=== PATIENT | male | born 1980 | race Caucasian/White ===

== ENCOUNTER 2018-01-22 20:31 | Emergency (ER) | payer SELFPAY ==
[~2018-01-22] VITALS: Ht 185.4 cm; Wt 81.6 kg
[2018-01-22 20:48] VITALS: BP 118/73
--- NOTE | 2018-01-22 20:51 | NUR ---
PT TRIAGED AND SENT TO ER LOBBY. EDMD AWARE OF PT STATUS
--- NOTE | 2018-01-22 22:51 | NUR ---
CALLED IN AND OUT OF LOBBY X 3 WITHOUT ANSWER.
--- NOTE | 2018-01-22 22:58 | NUR ---
CALLED IN AND OUT OF LOBBY X 3 WITHOUT ANSWER. PATIENT LEFT WITHOUT BEING SEEN BY DR. WOOD. NO FURTHER CARE PROVIDED FOR PATIENT.
== END 2018-01-22 22:51 | disposition left against medical advice (07) ==
LOC: MED 20:31
DX: S61.012A Laceration without foreign body of left thumb without damage to nail, initial encounter (principal); Z53.21 Procedure and treatment not carried out due to patient leaving prior to being seen by health care provider; W45.8XXA Other foreign body or object entering through skin, initial encounter; Y93.89 Activity, other specified; Y92.89 Other specified places as the place of occurrence of the external cause; Y99.8 Other external cause status